=== PATIENT | female | born 1995 | race African-American/Black ===

== ENCOUNTER 2018-01-18 12:18 | Emergency (ER) | payer BC, SELFPAY ==
[2018-01-18 12:19] VITALS: BP 124/71; PULSE 81; RESP 16; TEMP 36.3; O2SAT 98; BMI 36.3
--- NOTE | 2018-01-18 12:40 | US_ITS ---
STUDY: ABDOMINAL ULTRASOUND - RIGHT UPPER QUADRANT REASON FOR VISIT: Female, 22 years old. Pain TECHNIQUE: Ultrasound evaluation of the right upper quadrant was performed with real-time and static duvall-scale imaging. TECHNICAL QUALITY: Adequate. COMPARISON: None. FINDINGS: Liver: The liver measures 14.5 cm. There is normal echogenicity of the liver. The bile ducts are within normal limits. There is hepatic color flow. The direction of portal flow is hepatopetal. There is no demonstrated mass lesion. Gallbladder: Normal distended gallbladder. The gallbladder wall measures 2.1 mm. There is a negative sonographic Dudley's sign. There is no pericholecystic fluid. There are no gallstones. Common Bile Duct (C.B.D.): The common bile duct measures 2.9 mm. Pancreas: Normal size of the head, body and tail of the pancreas. There is normal echogenicity of the pancreas. There is no demonstrated pancreatic mass or cyst. Right Kidney: Normal size of the right kidney. The right kidney measures 10.2 x 5.1 x 5.1 cm. Normal renal cortex. The right cortex measures 1.4 cm. There is no demonstrated renal mass or cyst. There is no right hydronephrosis. US/Gallbladder IMPRESSION: Normal right upper quadrant ultrasound examination. Electronically Signed: Victoria Baltazar MD at 14:34 EDT Tel , Service support ,
[2018-01-18] MEDS: 0.9% Normal Saline 1,000 ML 1000 ML IV (13:01)
[2018-01-18] MEDS: Ondansetron 4 MG/2 ML Vial IV (13:01)
[2018-01-18 13:11] LABS: Absolute Lymphocyte Count 1.29 X10^3/ul (0.83-4.51); Absolute Neutrophil Count 2.9 X10^3/uL (2.0-7.7); Eosinophil# 0.14 X10^3/uL; Hematocrit 36.1 % (37-47); Hemoglobin 11.9 g/dl (12.0-15.0); Lymphocyte # 1.29 X10^3/ul (4.0); Lymphocyte % 27.4 % (19-41); Mean Corpuscular Hgb 28.5 pg (27.0-32.0); Mean Corpuscular Volume 86.4 fL (81-99); Mean Platelet Vol. 9.8 fl (6.2-12.0); Monocyte# 0.34 X10^3/uL; Monocyte% 7.2 % (0-10); Neutrophil # 2.92 X10^3/uL (2.7-7.7); Neutrophil % 62.2 % (47-70); Platelet Count 222 K/mm3 (150-450); RBC Distribution Width CV 13.5 % (11.6-14.6); RBC Distribution Width SD 41.8 fl (35.1-43.9); Red Blood Count 4.18 M/mm3 (4.2-5.4); White Blood Count 4.7 K/mm3 (4.4-11.0)
[2018-01-18 13:12] LABS: POSITIVE COUNT NO; POSITIVE DIFFERENTIAL NO; POSITIVE MORPHOLOGY NO
[2018-01-18 13:25] LABS: AST(SGOT) 39 U/L (15-37); Alanine Aminotransfer ALT/SGPT 60 U/L (13-56); Albumin, Serum 3.7 g/dL (3.2-5.0); Alkaline Phosphatase 51 U/L (45-117); Anion Gap 6 (5-15); BUN 10 mg/dL (7-18); BUN/Creat Ratio 13.7 RATIO (10-20); Calcium,Total 8.3 mg/dL (8.5-10.1); Chloride 103 mmol/L (98-107); Creatinine, Serum 0.73 mg/dL (0.55-1.02); EST Glomerular Filtration Rate 107 mL/min (>60); Est Glom Filt Rate - Afr Amer 130 mL/min (>60); Estimated Creatinine Clearance 101.69 ml/min; Globulin 3.7 g/dL (2.2-4.2); Glucose 84 mg/dL (74-106); Lipase 75 U/L (73-393); Potassium 3.8 mmol/L (3.5-5.1); Protein, Total 7.4 g/dL (6.4-8.2); Sodium Level 136 mmol/L (136-145)
[2018-01-18 14:28] LABS: Mucous, Urine 0 SEEN /hpf (<or=2+); Red Blood Cells-Urine 0 SEEN /hpf (0-5); White Blood Cells 0 SEEN /hpf (0-5)
[2018-01-18 14:29] LABS: Color, Urine Yellow (Yellow); Glucose, Dipstick Normal (Normal); Ketone-Dipstick Negative (Negative); Leukocyte Esterase-Dipstick Negative /ul (Negative); Nitrite-Dipstick Negative (Negative); Occult Blood-Urine Negative /ul (Negative); Protein-Dipstick Negative (Negative); Urine Bilirubin Dipstick Negative (Negative); Urine Clarity Clear (Clear); Urine Urobilinogen Normal (Normal)
[2018-01-18 14:31] LABS: Internal QC Validated? YES +Cl - CLEAR BKGD; Pregnancy, Urine Negative Negative
[2018-01-18 14:35] LABS: Bacteria 1+ /hpf (None Seen); Squamous Epithelial Cells - UA 0-5 SEEN /hpf (5-10)
--- NOTE | 2018-01-18 14:52 | ED.VISSUMM ---
- ER Visit Summary Date of Service: 01/18/18 Chief Complaint: Nausea and vomiting History of Present Illness: The patient is a 22 F with nausea and vomiting for 2 days. The patient also has some right upper quadrant pain. Worse with food. Associated with subjective fevers and sweats. No other GI symptoms. No history of this in the past. No past medical or surgical history. Physical Examination: Afebrile and vital signs unremarkable. Nontoxic and in no acute distress. Skin appears normal. Heart regular rate and rhythm. Lungs clear. Abdomen is tender in the right upper quadrant. No guarding or rebound. Test Results: Hemoglobin 11.9. ALT 60 and AST 39. Lipase normal. Urinalysis normal. test negative. Right upper quadrant ultrasound normal. Emergency Department Course and Treatment: Patient's presentation was concerning for hepatobiliary pathology, possibly infection. Her workup was fairly unremarkable except her liver enzymes were slightly elevated at 60 and 39. Patient denies any history of hepatitis or liver problems. She has taken Tylenol, most recently she was taking about 6 tablets a day 2 weeks ago during her menstrual period. She never took more than 6 tablets/day, and this is not expected to cause toxicity. Patient denies any other new medications or ingestions. She does not drink alcohol. On reevaluation, the patient is stable. Liver enzymes are only slightly elevated. I believe she is appropriate for outpatient follow-up. I did send a hepatitis panel. I advised the patient to discontinue taking any additional Tylenol until she follows up. Treatment Plan: Do not take Tylenol. Follow-up with primary care. Disposition: Discharge Impression: 1. Right upper quadrant abdominal pain 2. Elevated liver enzymes This note was generated with [facility] dictation software. It may contain incorrect words, spelling, and punctuation that were not noted in review of the chart prior to signing ED Disposition - Plan for ED Patient: Chief Complaint: Nausea/Vomiting Referrals: Care Physician,No Primary [Primary Care Provider] -
--- NOTE | 2018-01-18 15:01 | ED.DEP ---
ED Disposition - Plan for ED Patient: Chief Complaint: Nausea/Vomiting Instructions: Common Tests for Liver Disease Referrals: Joy Bauman MD [STAFF PHYSICIAN] - Additional Instructions: Do not take Tylenol or drink alcohol. Follow-up for evaluation of your elevated liver enzymes, ALT 60 and AST 39. A viral hepatitis panel was done today, but results are not available from the emergency department. Follow-up with the outpatient doctor for results.
[2018-01-18 15:29] VITALS: BP 108/64; PULSE 73; RESP 16; O2SAT 100
[2018-01-20 08:12] LABS: HEPATITIS B SURFACE AG Negative (Negative); Hepatitis A IgM Antibody Negative (Negative); Hepatitis B Core AB IgM Negative (Negative)
[2018-01-20 11:40] LABS: Hep C Antibodies <0.1 s/co ratio (0.0-0.9)
== END 2018-01-18 15:31 | disposition home or self-care (01) ==
PROVIDERS: Emergency Provider Emergency Medicine; Referring Provider Emergency Medicine
DX: R10.11 Right upper quadrant pain (principal); R11.2 Nausea with vomiting, unspecified; R79.89 Other specified abnormal findings of blood chemistry
CPT/HCPCS: 76705; 80053; 80074; 81001; 81025; 83690; 85025; 96361; 96374; 99284; J7030; A4216; J2405